=== PATIENT | female | born 1980 | race Caucasian/White ===

== ENCOUNTER 2016-07-20 15:28 | Emergency (ER) | payer OTHER | END 2016-07-20 16:12 | disposition home or self-care (01) | LOC: ER 15:28 | DX: R11.2 Nausea with vomiting, unspecified (principal); Z90.49 Acquired absence of other specified parts of digestive tract; Z79.899 Other long term (current) drug therapy; Z88.2 Allergy status to sulfonamides | CPT/HCPCS: 87502 ==

== ENCOUNTER 2016-09-21 21:18 | Emergency (ER) | payer OTHER | END 2016-09-21 22:10 | disposition hospice, home (50) | LOC: ER 21:18 | DX: M79.81 Nontraumatic hematoma of soft tissue (principal); Z98.890 Other specified postprocedural states; Z88.8 Allergy status to other drugs, medicaments and biological substances ==